=== PATIENT | female | born 1980 | race Caucasian/White ===

== ENCOUNTER 2018-02-07 06:05 | Emergency (ER) | payer SELFPAY ==
[2018-02-07 06:15] VITALS: BP 176/121; PULSE 80; RESP 18; TEMP 36.7; O2SAT 100
--- NOTE | 2018-02-07 06:20 | ED.DENTAL ---
HPI - Dental/Oral General Chief complaint: Dental/Oral Stated complaint: facial pain left, thinks took infected, fever Time Seen by Provider: 02/07/18 06:09 Source: patient Mode of arrival: ambulatory Limitations: no limitations History of Present Illness HPI Narrative: 37-year-old female with known poor dentition secondary to a prior history of drug use here for evaluation of left upper tooth pain. Patient states that she has had issues in this area in the past. States that this issue is been going on for while. Does not have a dentist. States that she is from [facility] and is up in the area because her is working in this area. She states that she has pain on the left side of her nose and under her left eye. States she feels like there is drainage in her throat. No fevers. No problems swallowing. Has not tried anything for it. Related Data Previous Rx's Medication Instructions Recorded clindamycin HCl 300 mg PO QID 7 Days #28 cap 02/07/18 hydrocodone-acetaminophen [[place]] 1 tab PO Q6H PRN #7 tab 02/07/18 Review of Systems Constitutional Denies fever(s) and Denies headache(s) Eyes Denies diplopia and Denies eye discharge ENT Ears, Nose, Mouth, and Throat: Denies change in voice, Reports dental pain, Denies dysphagia, Denies vertigo, Denies headache(s), Denies epistaxis, Reports mouth lesions, Reports mouth pain, Denies nose pain, Reports sinus pain, Denies sore throat and Denies throat swelling Cardiovascular Denies dyspnea Respiratory Denies cough and Denies dyspnea Gastrointestinal Gastrointestinal: Denies dysphagia Neurologic Denies vertigo and Denies headache(s) Hematologic/Lymphatic Denies easy bruising Allergic/Immunologic Denies throat swelling Exam Initial Vital Signs Initial Vital Signs: Vital Signs Temperature 98.1 F 02/07/18 06:15 Pulse Rate 80 02/07/18 06:15 Respiratory Rate 18 02/07/18 06:15 Blood Pressure 176/121 H 02/07/18 06:15 Pulse Oximetry 100 02/07/18 06:15 Const General: cooperative, healthy appearing and comfortable Orientation: alert, awake and oriented x3 HENMT Head: normal to inspection, normocephalic and atraumatic Ears: hearing grossly normal bilaterally and TM's normal bilaterally Nose: external nose normal, nares normal, septum normal, No epistaxis and No nasal discharge Face and sinus: normal facial exam, sinuses tender ( Left maxillary sinus tenderness), face symmetric, no ecchymosis, no erythema and no edema Mouth: oral mucosae normal, tongue normal and moist mucous membranes Teeth and gingiva: other ( patient with poor dentition missing the front 6 upper teeth secondary to drug use) Throat: posterior oropharynx normal Neck Neck: normal visual inspection and No lymphadenopathy Lymphatic: No lymphadenopathy Resp Effort & Inspection: normal respiratory effort Skin General: no rashes or lesions noted, No jaundice and No petechiae Neuro General: alert, awake and oriented x3 Cognition: normal cognition Speech: speech normal Motor: muscle tone normal throughout Sensory Exam: no sensory deficits noted Course Orders Ordered: Discontinued Medications Hydrocodone Bitart/Acetaminophen ([place] 5/325) 1 tab PO NOW ONE Stop: 02/07/18 06:20 Clindamycin HCl ([place]) 300 mg PO NOW ONE Stop: 02/07/18 06:20 Vital Signs - 8 hr 02/07/18 06:15 Temperature 98.1 F Pulse Rate 80 Respiratory Rate 18 Blood Pressure 176/121 H Pulse Oximetry 100 MDM - Dental/Oral MDM Narrative Medical decision making narrative: patient with poor dentition in the 6 upper front teeth consistent with her prior history of drug use. Does have redness on the upper left side and tenderness to the left maxillary sinus. No definite abscess seen that can be drained here in the emergency department. Will start the patient on antibiotics. She was given her 1st dose of antibiotics here in the emergency department. She was offered a dental injection which she refused. Informed her that she did need to follow up with a dentist to have this definitively taken care of. She was given return precautions. She expressed understanding and agreement with plan Discharge Plan Departure Patient Disposition: Home, Self-Care Clinical Impression: Dental abscess, Dental caries Instructions: Tooth Abscess Activity Restrictions/Additional Instructions: take all the medications as instructed. You do need to follow-up with a dentist to have your teeth definitively taken care of. Return to the emergency department for any new symptoms, worsening symptoms, worsening pain, inability to tolerate oral intake, problems breathing or any other new or concerning symptoms Prescriptions: New clindamycin HCl 300 mg capsule 300 mg PO QID 7 Days Qty: 28 RF: 0 hydrocodone-acetaminophen [[place]] 5-325 mg tablet 1 tab PO Q6H PRN (Reason: pain) Qty: 7 RF: 0
--- NOTE | 2018-02-07 06:24 | ED_ITS ---
HPI - Dental/Oral General Chief complaint: Dental/Oral Stated complaint: facial pain left, thinks took infected, fever Time Seen by Provider: 02/07/18 06:09 Source: patient Mode of arrival: ambulatory Limitations: no limitations History of Present Illness HPI Narrative: 37-year-old female with known poor dentition secondary to a prior history of drug use here for evaluation of left upper tooth pain. Patient states that she has had issues in this area in the past. States that this issue is been going on for while. Does not have a dentist. States that she is from located within [facility] and is up in the area because her is working in this area. She states that she has pain on the left side of her nose and under her left eye. States she feels like there is drainage in her throat. No fevers. No problems swallowing. Has not tried anything for it. Related Data Previous Rx's Medication Instructions Recorded clindamycin HCl 300 mg PO QID 7 Days #28 cap 02/07/18 hydrocodone-acetaminophen [[place]] 1 tab PO Q6H PRN #7 tab 02/07/18 Review of Systems Constitutional Denies fever(s) and Denies headache(s) Eyes Denies diplopia and Denies eye discharge ENT Ears, Nose, Mouth, and Throat: Denies change in voice, Reports dental pain, Denies dysphagia, Denies vertigo, Denies headache(s), Denies epistaxis, Reports mouth lesions, Reports mouth pain, Denies nose pain, Reports sinus pain, Denies sore throat and Denies throat swelling Cardiovascular Denies dyspnea Respiratory Denies cough and Denies dyspnea Gastrointestinal Gastrointestinal: Denies dysphagia Neurologic Denies vertigo and Denies headache(s) Hematologic/Lymphatic Denies easy bruising Allergic/Immunologic Denies throat swelling Exam Initial Vital Signs Initial Vital Signs: Vital Signs Temperature 98.1 F 02/07/18 06:15 Pulse Rate 80 02/07/18 06:15 Respiratory Rate 18 02/07/18 06:15 Blood Pressure 176/121 H 02/07/18 06:15 Pulse Oximetry 100 02/07/18 06:15 Const General: cooperative, healthy appearing and comfortable Orientation: alert, awake and oriented x3 HENMT Head: normal to inspection, normocephalic and atraumatic Ears: hearing grossly normal bilaterally and TM's normal bilaterally Nose: external nose normal, nares normal, septum normal, No epistaxis and No nasal discharge Face and sinus: normal facial exam, sinuses tender ( Left maxillary sinus tenderness), face symmetric, no ecchymosis, no erythema and no edema Mouth: oral mucosae normal, tongue normal and moist mucous membranes Teeth and gingiva: other ( patient with poor dentition missing the front 6 upper teeth secondary to drug use) Throat: posterior oropharynx normal Neck Neck: normal visual inspection and No lymphadenopathy Lymphatic: No lymphadenopathy Resp Effort & Inspection: normal respiratory effort Skin General: no rashes or lesions noted, No jaundice and No petechiae Neuro General: alert, awake and oriented x3 Cognition: normal cognition Speech: speech normal Motor: muscle tone normal throughout Sensory Exam: no sensory deficits noted Course Orders Ordered: Discontinued Medications Hydrocodone Bitart/Acetaminophen ([place] 5/325) 1 tab PO NOW ONE Stop: 02/07/18 06:20 Clindamycin HCl (Cleocin) 300 mg PO NOW ONE Stop: 02/07/18 06:20 Vital Signs - 8 hr 02/07/18 06:15 Temperature 98.1 F Pulse Rate 80 Respiratory Rate 18 Blood Pressure 176/121 H Pulse Oximetry 100 MDM - Dental/Oral MDM Narrative Medical decision making narrative: patient with poor dentition in the 6 upper front teeth consistent with her prior history of drug use. Does have redness on the upper left side and tenderness to the left maxillary sinus. No definite abscess seen that can be drained here in the emergency department. Will start the patient on antibiotics. She was given her 1st dose of antibiotics here in the emergency department. She was offered a dental injection which she refused. Informed her that she did need to follow up with a dentist to have this definitively taken care of. She was given return precautions. She expressed understanding and agreement with plan Discharge Plan Departure Patient Disposition: Home, Self-Care Clinical Impression: Dental abscess, Dental caries Instructions: Tooth Abscess Activity Restrictions/Additional Instructions: take all the medications as instructed. You do need to follow-up with a dentist to have your teeth definitively taken care of. Return to the emergency department for any new symptoms, worsening symptoms, worsening pain, inability to tolerate oral intake, problems breathing or any other new or concerning symptoms Prescriptions: New clindamycin HCl 300 mg capsule 300 mg PO QID 7 Days Qty: 28 RF: 0 hydrocodone-acetaminophen [[place]] 5-325 mg tablet 1 tab PO Q6H PRN (Reason: pain) Qty: 7 RF: 0
[2018-02-07] MEDS: HYDROCODONE/ACET 5/325 TABLET 1 TAB PO (06:30)
[2018-02-07] MEDS: CLINDAMYCIN 150 MG CAPSULE 300 MG PO (06:31)
[2018-02-07 06:43] VITALS: BP 176/121; PULSE 80; RESP 18; TEMP 36.7; O2SAT 100; BMI 30.7
[2018-02-07 06:47] VITALS: BP 150/100; PULSE 88; RESP 18; O2SAT 100
== END 2018-02-07 06:50 | disposition home or self-care (01) ==
PROVIDERS: Emergency Provider Emergency Medicine
DX: K04.7 Periapical abscess without sinus (principal); K02.9 Dental caries, unspecified
CPT/HCPCS: 99282; 99283